=== PATIENT | female | born 2000 | race Two or more races ===

== ENCOUNTER 2024-07-20 00:58 | Emergency (ER) | payer OTHER ==
[~2024-07-20] VITALS: Ht 175.3 cm; Wt 66.0 kg
[2024-07-20 00:59] VITALS: BP 143/86; PULSE 106; RESP 14; O2SAT 99
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
[2024-07-20] MEDS ORDERED: ACETAMINOPHEN 500 MG TAB PO ONE (01:15)
== END 2024-07-20 02:13 | disposition home or self-care (01) ==
LOC: ER 00:58 → EDBD 00:58 → ER 02:13
DX: S01.21XA Laceration without foreign body of nose, initial encounter (principal); W22.09XA Striking against other stationary object, initial encounter; Y93.89 Activity, other specified; Y92.89 Other specified places as the place of occurrence of the external cause; Y99.8 Other external cause status